=== PATIENT | female | born 1990 | race Caucasian/White ===

== ENCOUNTER 2021-06-01 10:09 | Emergency (ER) | payer BC ==
[2021-06-01 10:27] VITALS: BMI 45.1
[2021-06-01] MEDS ORDERED: CASIRIVIMAB/IMDEVIMAB 10 ML in SODIUM CHLORIDE 100 ML IVPB ONE (11:23)
[2021-06-01 16:00] VITALS: BP 104/69; PULSE 82; TEMP 98.1
== END 2021-06-01 15:59 | disposition home or self-care (01) ==
LOC: JCOVINFU 10:09
DX: U07.1 COVID-19 (principal)
CPT/HCPCS: 99284-25; Q0240